=== PATIENT | female | born 1955 | race Caucasian/White ===

== ENCOUNTER → 2020-05-22 14:49 | Outpatient (CLI) | payer MEDICAID, SELFPAY ==
[2020-05-22 17:50] LABS: Anion Gap 3 (5-15); BUN 24 mg/dL (7-18); BUN/Creat Ratio 16.3 RATIO (10-20); Calcium,Total 9.5 mg/dL (8.5-10.1); Chloride 114 mmol/L (98-107); Creatinine, Serum 1.47 mg/dL (0.55-1.02); EST Glomerular Filtration Rate 38 mL/min (>60); Est Glom Filt Rate - Afr Amer 46 mL/min (>60); Glucose 137 mg/dL (74-106); Potassium 3.9 mmol/L (3.5-5.1); Sodium Level 144 mmol/L (136-145)
[2020-05-22 18:26] LABS: Hemoglobin A1c 5.4 % (3.8-5.6)
== END ==
PROVIDERS: PCP Family Medicine; Visit Provider Family Medicine
DX: R63.1 Polydipsia (principal)
CPT/HCPCS: 36415; 80048; 83036

== ENCOUNTER 2020-08-07 15:07 | Emergency (ER) | payer MEDICARE, MEDICAID, SELFPAY ==
[2020-08-07 15:08] VITALS: BP 151/98; PULSE 75; RESP 16; TEMP 36.6; O2SAT 98; BMI 24.8
[2020-08-07 16:42] LABS: Absolute Lymphocyte Count 1.44 X10^3/uL (0.83-4.51); Absolute Neutrophil Count 4.3 X10^3/uL (2.0-7.7); Basophil# 0.01 X10^3/uL; Basophil% 0.2 % (0-1); Eosinophil# 0.01 X10^3/uL; Eosinophils% 0.2 % (0-5); Hematocrit 36.9 % (37-47); Lymphocyte # 1.44 X10^3/ul (4.0); Lymphocyte % 23.2 % (19-41); Mean Corp Hgb Conc 32.5 g/dL (32-36); Mean Corpuscular Hgb 30.6 pg (27.0-32.0); Mean Corpuscular Volume 94.1 fL (81-99); Mean Platelet Vol. 10.2 fl (6.2-12.0); Monocyte# 0.41 X10^3/uL; Monocyte% 6.6 % (0-10); NRBC Flagged by Analyzer 0 % (0-5); Neutrophil # 4.31 X10^3/uL (2.7-7.7); Neutrophil % 69.5 % (47-70); Platelet Count 232 K/mm3 (150-450); RBC Distribution Width CV 12.7 % (11.6-14.6); RBC Distribution Width SD 43.5 fl (35.1-43.9); Red Blood Count 3.92 M/mm3 (4.2-5.4); White Blood Count 6.2 K/mm3 (4.4-11.0)
[2020-08-07 16:49] LABS: Anion Gap 4 (5-15); BUN 28 mg/dL (7-18); BUN/Creat Ratio 17.7 RATIO (10-20); Calcium,Total 9.4 mg/dL (8.5-10.1); Chloride 111 mmol/L (98-107); Creatinine, Serum 1.58 mg/dL (0.55-1.02); EST Glomerular Filtration Rate 35 mL/min (>60); Est Glom Filt Rate - Afr Amer 42 mL/min (>60); Estimated Creatinine Clearance 33.23 ml/min; Glucose 94 mg/dL (74-106); Potassium 4.4 mmol/L (3.5-5.1); Sodium Level 142 mmol/L (136-145)
[2020-08-07 16:52] LABS: Amphetamine Urine VISTA NEGATIVE (<1000 ng/mL); Barbiturate Urine VISTA NEGATIVE (< 200 ng/mL); Benzodiazepine Urine VISTA NEGATIVE (< 200 ng/mL); Cocaine Urine VISTA NEGATIVE (< 300 ng/mL); Ecstacy Urine VISTA NEGATIVE (< 500 ng/mL); Methadone Urine VISTA NEGATIVE (< 300 ng/mL); PCP Urine VISTA NEGATIVE (< 25 ng/mL); THC Urine VISTA NEGATIVE (< 50 ng/mL); Vista UDS pH Range 5
[2020-08-07 16:53] LABS: Alcohol, Blood (Medical)-Serum < 3.0 mg/dL
--- NOTE | 2020-08-07 17:15 | NURSING ---
FAXED CHART TO [facility]
[2020-08-07 18:00] VITALS: RESP 16
[2020-08-07 21:07] VITALS: BP 153/92; PULSE 75; RESP 16; O2SAT 98
--- NOTE | 2020-08-07 21:21 | ED.RN ---
PINK SLIP AND COVID TEST FAXED TO [facility]
[2020-08-07] MEDS: Atorvastatin Calcium 10 MG Tablet PO (21:42)
[2020-08-07] MEDS: Atenolol 25 MG Tablet PO (21:42)
[2020-08-07] MEDS: Mirtazapine 30 MG Tablet PO (21:42)
[2020-08-07] MEDS: RisperiDONE 1 MG Tablet PO (21:42)
--- NOTE | 2020-08-07 22:22 | ED.DCSUM_ITS ---
- ER Visit Summary Date of Service: 08/07/20 Chief Complaint: Suicidal ideation History of Present Illness: The patient is a 65 F presenting with suicidal ideation. Patient is currently living in a custodial. She has history of mild intellectual delay, bipolar disorder, schizoaffective disorder. She has been from her . She has been unable to see him because of the current Covid pandemic. She has been increasingly agitated at the custodial. Today she tried to break a display case. She states she wanted to break the glass so she could slit her wrists. She does have history of past suicidal ideation. Physical Examination: Vitals are stable. Patient is afebrile. Alert no acute distress. HEENT exam is unremarkable. Neck is supple. Lungs are clear and equal bilaterally. Heart is regular rate and rhythm. Abdomen is soft nontender nondistended. Extremities are unremarkable. Skin is warm and dry. Depressed affect, cooperative Remainder of exam is unremarkable. Emergency Department Course and Treatment: CBC, chemistries unremarkable other than BUN 28, creatinine 1.58, this is similar to previous. Alcohol and tox are negative. Covid negative. [place] slip was completed. Discussed with the counseling center and her sister who is her power of defense attorney. Plan is for placement at inpatient psychiatric facility. Disposition: Per counseling center Impression: Suicidal ideation This note was generated with [employer] dictation software. It may contain incorrect words, spelling, and punctuation that were not noted in review of the chart prior to signing ED Disposition - Plan for ED Patient: Referrals: Len Salazar MD [Primary Care Provider] -
[2020-08-07 23:01] VITALS: BP 124/80; PULSE 63; RESP 16; O2SAT 98
--- NOTE | 2020-08-07 23:01 | ED.RN ---
PT REMAINS CALM AND COOPERATIVE, MAKES NEEDS KNOWN, AMBULATES WELL WITH STEADY GAIT. PT CURRENTLY DENIES SUICIDAL IDEATIONS, HOWEVER ALSO AGREEABLE TO INPATIENT [place].
--- NOTE | 2020-08-07 23:05 | ED.RN ---
[facility] CALL[facility] FOR ADDITIONAL INFORMATION REGARDING POSSIBLE PLACEMENT. NO ACCEPTANCE AT THIS TIME. SISTER ANGLE ALSO CALLED FOR UPDATE.
[2020-08-08] VITALS (7 sets, daily range): BP systolic 137; BP diastolic 84–85; PULSE 70–77; RESP 16–18; O2SAT 96–97
--- NOTE | 2020-08-08 00:04 | ED.RN ---
patient has been accepted to [facility]. Some one from their facility will call after 8 am to arrange transport at this time
--- NOTE | 2020-08-08 10:23 | NURSING ---
ASSURANCE CALLED JONATAN TO ARRIVE ABOUT 1130
== END 2020-08-08 11:50 ==
PROVIDERS: Emergency Provider Emergency Medicine; PCP Family Medicine
DX: R45.851 Suicidal ideations (principal); F25.9 Schizoaffective disorder, unspecified; F31.9 Bipolar disorder, unspecified; F70 Mild intellectual disabilities
CPT/HCPCS: 36415; 80048; 80307; 80320; 85025; 87426; 99285; J7030; A4216; G0480

== ENCOUNTER 2021-04-13 18:08 | Emergency (ER) | payer MEDICARE, MEDICAID, SELFPAY ==
[2021-04-13 18:09] VITALS: BP 130/83; PULSE 87; RESP 16; TEMP 37.3; O2SAT 97; BMI 33.3
--- NOTE | 2021-04-13 18:41 | CT_ITS ---
STUDY: CT BRAIN WITHOUT CONTRAST REASON FOR EXAM: Female, 65 years old. Injury. Pain. Laceration to the head. Headache. Patient on anticoagulants. RADIATION DOSAGE (If Supplied By Facility): CTDIvol = ( 44.99 ) mGy, DLP = ( 796.11 ) mGycm TECHNIQUE: Transaxial CT imaging of the brain was performed without administration of intravenous contrast material. Individualized dose optimization techniques were used for this CT. COMPARISON: No relevant priors. FINDINGS: Normal soft tissue structures. Normal calvarium. There is mild cerebral atrophy with widening of the extra-axial spaces and ventricular dilatation. There are areas of decreased attenuation within the white matter tracts of the supratentorial brain, consistent with microvascular disease changes. Normal basal ganglia and thalami. Normal brainstem. Normal cerebellum. There is no intracranial hemorrhage. There are no findings of an acute ischemic infarction. Normal visualized paranasal sinuses. CT/Brain/Head without Contrast IMPRESSION: Chronic involutional changes without evidence of acute intracranial or calvarial abnormality. Electronically Signed: Da Sheppard DO at 19:45 EDT Tel [phone], Service support ,
--- NOTE | 2021-04-13 18:41 | CT_ITS ---
STUDY: CT CERVICAL SPINE WITHOUT CONTRAST REASON FOR EXAM: Female, 65 years old. Injury. Pain. Laceration of the head after fall. Patient on anticoagulants RADIATION DOSAGE (If Supplied By Facility): CTDIvol = ( 20.92 ) mGy, DLP = ( 292.62 ) mGycm TECHNIQUE: High resolution transaxial imaging was performed without contrast material. Sagittal and coronal images were reconstructed. Individualized dose optimization techniques were used for this CT. COMPARISON: None FINDINGS: Normal craniovertebral junction. There are degenerative changes of the anterior atlantoaxial articulation. Normal odontoid process. There is reversal of the normal cervical lordosis. Normal vertebral bodies and posterior osseous elements. C2-3: Normal endplates. Normal disc height and morphology. Normal central canal and intervertebral neuroforamina. C3-4: Normal endplates. Normal disc height and morphology. Facet joint degenerative change. Normal central canal and intervertebral neuroforamina. C4-5: Normal endplates. Normal disc height and morphology. Normal central canal and intervertebral neuroforamina. C5-6: Normal central canal and intervertebral neuroforamina. C6-7: Endplate spondylosis. Loss of disc height. Facet joint degenerative change. Normal central canal and intervertebral neuroforamina. C7-T1: Normal endplates. Normal disc height and morphology. Normal central canal and intervertebral neuroforamina. Normal visualized soft tissue structures. CT/Spine Cervical without Contras IMPRESSION: 1. Degenerative changes cervical spine without acute fracture or subluxation. 2. A reversal cervical lordosis thought to be postural. Note: MRI is more sensitive than CT in detecting cord injury, ligamentous injury and epidural hematoma. If there is continued clinical concern for any of these entities, MRI should be considered. Electronically Signed: Da Sheppard DO at 19:48 EDT Tel [phone], Service support ,
[2021-04-13] MEDS: Diphth,Pertuss(Acell),Tet Vac 0.5 ML Vial IM (18:54)
--- NOTE | 2021-04-13 19:01 | ED.RN ---
Pt to be discharged to [facility].
[2021-04-13] MEDS: Acetaminophen 325 MG Tablet 650 MG PO (20:21)
[2021-04-13 20:50] VITALS: BP 146/89; PULSE 86; RESP 16; O2SAT 96
--- NOTE | 2021-04-13 21:15 | ED.RN ---
Verbal permission to treat pt given by Shavon, update regarding pt also given at this time.
--- NOTE | 2021-04-13 21:20 | ED.RN ---
Permission to treat given verbally by Shavon hardy. Also updated Shavon al pt during this phone call.
[2021-04-13 22:05] VITALS: BP 159/86; PULSE 86; RESP 16; O2SAT 96
[2021-04-13] MEDS: Lidocaine 1% /Epi 1:100 (20ml) 20 ML Vial INFILT (23:05)
--- NOTE | 2021-04-13 23:08 | EX.ED.GENINJ ---
HPI History of Present Illness Chief Complaint: Head Injury Informant: patient Narrative Narrative: Patient is a 65-year-old female presenting with mechanical fall. Patient was visiting with her when she tripped and hit her head on the cement. No loss of conscious. Patient states she is on a blood thinner but does not know which one. Patient is complaining of headache and mild neck pain. No other complaints. Is not sure when her last tetanus was. Tetanus Immunization: Unknown PFSH PFSH Medical History Anxiety Bipolar disorder Depression Hypertension Post-menopausal Rheumatoid arthritis Smoker Home Medications amlodipine-benazepril 1 ea PO DAILY 08/07/20 [History Last Taken Unknown] atenolol 25 mg PO DAILY 08/07/20 [History Last Taken Unknown] cholecalciferol (vitamin D3) 2,000 unit PO DAILY 08/07/20 [History Last Taken Unknown] docusate sodium 100 mg PO DAILY 08/07/20 [History Last Taken Unknown] ferrous sulfate 325 mg PO DAILY@0800 08/07/20 [History Last Taken Unknown] lovastatin 40 mg PO QHS 08/07/20 [History Last Taken Unknown] mirtazapine 30 mg PO QHS 08/07/20 [History Last Taken Unknown] risperidone 1 mg PO BID 08/07/20 [History Last Taken Unknown] Allergy/AdvReac Type Severity Reaction Status Date / Time No Known Allergies Allergy Verified 08/07/20 15:12 Social History Smoking Status: Current every day smoker tobacco type: cigarettes ROS ROS ED Constitutional Constitutional ED: Denies chills or fever(s) Eyes Eyes: Denies change in vision ENT ENT ED: Denies ear pain or rhinorrhea Cardiovascular Cardiovascular: Denies chest pain Respiratory/Chest Respiratory/Chest: Denies dyspnea Gastrointestinal Gastrointestinal: Denies abdominal pain or vomiting Musculoskeletal Musculoskeletal: Reports neck pain; Denies arthralgias or myalgias Integumentary Reports Abrasions Neurologic Neurologic: Reports headache(s); Denies paresthesias or weakness EXAM Physical Exam Const Vital Signs: 04/13/21 18:09 04/13/21 20:50 04/13/21 22:05 Temperature 99.1 F Temperature Source Oral Pulse Rate 87 86 86 Respiratory Rate 16 16 16 Blood Pressure 130/83 H 146/89 H 159/86 H Blood Pressure Mean 98 108 110 Pulse Ox 97 96 96 Oxygen Delivery Method Room Air Room Air Positive well nourished and well developed General Appearance ED: well developed HEENT Reports TM's clear HEENT Narrative: No malocclusion. Laceration to forehead. trauma Nose: Negative for septum abnormal Tympanic Membrane ED: Yes TM's clear Eyes PERRL and EOMs intact bilaterally General Eye ED: Yes other Other Details: No proptosis Neck full ROM General: other No midline tenderness or step-off sign. Mild diffuse paraspinal tenderness Chest Wall inspection of chest normal Resp normal respiratory effort and clear to auscultation bilaterally Cardio regular rhythm Rate: regular rate GI normal to inspection, nondistended, normoactive bowel sounds Extremity normal to inspection and full ROM General Extremety ED: Negative for deformity or edema General Extremity: Negative for deformity or edema Neuro oriented x3, moves all extremities and no focal motor deficits Sensorium / Orientation: alert Psych mental status grossly normal Skin Skin Narrative: 4 cm irregular full-thickness laceration of the forehead that does go into the hairline. It is still oozing blood. PROC Procedures Lacerations forehead: Length: 1.57 in Depth: Skin Shape: Stellate Prep: Sterile Conditions and Chlorhexadine Laceration repair: Lidocaine with epi and Skin sutures Irrigated (ml): 200 Number of Sutures/Stevenson: 7 Suture Information: Vicryl (rapid ) and 5-0 MDM MDM MDM Narrative Medical decision making narrative: Patient evaluated for head injury. She had mechanical fall and struck her head on the cement. She does have a laceration. See procedure note. Tetanus is updated. She is given Tylenol for headache. Head CT and C-spine do not show any acute process. Patient is discharged with her and [id number] and will be given a ride back to her facility. Absorbable sutures are placed and she is counseled she does not require suture removal. Counseled generalized wound care. Radiography Diagnostic Testing: Radiology Impression Brain CT 04/13/21 18:41 IMPRESSION: Chronic involutional changes without evidence of acute intracranial or calvarial abnormality. Electronically Signed: Da Sheppard DO at 19:45 EDT Tel [phone], Service support , Cervical Spine CT 04/13/21 18:41 IMPRESSION: 1. Degenerative changes cervical spine without acute fracture or subluxation. 2. A reversal cervical lordosis thought to be postural. Note: MRI is more sensitive than CT in detecting cord injury, ligamentous injury and epidural hematoma. If there is continued clinical concern for any of these entities, MRI should be considered. Electronically Signed: Da Sheppard DO at 19:48 EDT Tel [phone], Service support , Discharge Plan Triage Chief Complaint: Head Injury ED Provider: Lorene Dugan Dx/Rx/DC Orders Clinical Impression: Head injury, Forehead laceration, Need for Tdap vaccination Instructions: ED Head Injury (Adult), ED Laceration: All Closures Prescriptions: No Action lovastatin 40 MG tablet 40 mg PO QHS RF: 0 atenolol 25 MG tablet 25 mg PO DAILY RF: 0 amlodipine-benazepril 1 EACH capsule 1 ea PO DAILY RF: 0 mirtazapine 30 MG tablet 30 mg PO QHS RF: 0 ferrous sulfate 325 MG tablet 325 mg PO DAILY@0800 RF: 0 docusate sodium 100 MG capsule 100 mg PO DAILY RF: 0 risperidone 1 MG tablet 1 mg PO BID RF: 0 cholecalciferol (vitamin D3) 2,000 UNIT capsule 2,000 unit PO DAILY RF: 0 Primary Care Provider: Len Salazar Referrals: Len Salazar MD [Primary Care Provider] - Activity Restrictions/Additional Instructions: Your stitches will dissolve on their own Disposition Disposition: Home, Self Care Discharge Date/Time: 04/13/21 23:19
== END 2021-04-13 23:19 | disposition home or self-care (01) ==
PROVIDERS: Emergency Provider Emergency Medicine; PCP Family Medicine
DX: S01.81XA Laceration without foreign body of other part of head, initial encounter (principal); Z23 Encounter for immunization; F17.210 Nicotine dependence, cigarettes, uncomplicated; F31.9 Bipolar disorder, unspecified; F41.9 Anxiety disorder, unspecified; I10 Essential (primary) hypertension; M06.9 Rheumatoid arthritis, unspecified
CPT/HCPCS: 12011; 70450; 72125; 90715; 99284